=== PATIENT | female | born 1990 | race American Indian/Alaskan Native ===

== ENCOUNTER 2017-10-19 13:18 | Outpatient (CLI) | payer BC, MEDICAID ==
[2017-10-19 13:43] VITALS: BP 119/71
== END 2017-10-19 14:08 | disposition home or self-care (01) ==
LOC: TRG 13:18
PROVIDERS: ATTEND Obstetrics & Gynecology
DX: O47.1 False labor at or after 37 completed weeks of gestation (principal); Z3A.38 38 weeks gestation of pregnancy
CPT/HCPCS: 59025

== ENCOUNTER 2017-10-21 07:31 | Inpatient (IN) | payer BC, MEDICAID ==
[2017-10-21] MEDS ORDERED: NORMOSOL-R PH 7.4 1,000 ML IV ONE (08:35)
[2017-10-21] MEDS ORDERED: STADOL ONE (09:09)
[2017-10-21] MEDS ORDERED: STADOL IV PRN (09:22)
[2017-10-21 09:45] LABS: Hematocrit 34.5 % (30.3-42.9); Hemoglobin 10.9 gm/dl (10.1-14.3); Mean Corpuscular HGB Conc 32 % (30-34); Mean Corpuscular Volume 80 fl (79-97); Platelet Count 204 K/mm3 (140-440); Red Blood Count 4.34 M/mm3 (3.65-5.03); Red Cell Distribution Width 15.6 % (13.2-15.2)
[2017-10-21] MEDS ORDERED: NORMOSOL-R PH 7.4 1,000 ML IV SCH ×2 (10:00→12:00)
[2017-10-21 10:04] LABS: Mean Corpuscular Hemoglobin 25 pg (28-32)
[2017-10-21] MEDS ORDERED: PITOCin/NS 20 UNIT/1000ML DRIP 20,000 MILLIUNITS/1,000 ML BAG IV ONE (10:31)
--- NOTE | 2017-10-21 11:01 | History and Physical Report ---
History of Present Illness Date of examination: 10/21/17 Date of admission: 10/21/17 09:33 Chief complaint: CONTRACTIONS History of present illness: This is a 27 yo at 39 weeks came into triage c/o maikel. Patient was noted to be 4/100/0 station and commenced to srom clear fluid. patient is well known transfer patietn from another practice at 26 weeks. H/o HSV no outbreak nor lesions seen. 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 History: D&C, other (LEEP) HERB DOCTOR History: herpes Family/Genetic History: none Social history: single. denies: smoking, alcohol abuse, prescription drug abuse - Obstetrical History Expected Date of Delivery: 10/28/17 Actual Gestation: 39 Week(s) 0 Day(s) : 2 Para: 0 Hx # Term Pregnancies: 0 Number of Pregnancies: 0 Spontaneous Abortions: 1 Induced : 0 Number of Living Children: 0 Medications and Allergies Allergies Allergy/AdvReac Type Severity Reaction Status Date / Time No Known Allergies Allergy Unverified 10/19/17 13:53 Home Medications Medication Instructions Recorded Confirmed Last Taken Type Ferrous Sulfate [Feosol] 325 mg PO QDAY 10/19/17 10/21/17 10/20/17 08:00 History 1 valACYclovir [Valtrex] 1 tab PO BID 10/19/17 10/21/17 10/20/17 08:00 History Active Meds: Active Medications Butorphanol Tartrate (Stadol) 2 mg IV Q2H PRN PRN Reason: Labor Pain Last Admin: 10/21/17 09:10 Dose: 2 mg Parenteral Electrolytes (Normosol-R Ph 7.4) 1,000 mls @ 125 mls/hr IV DIRECT JUVE Review of Systems All systems: negative Genitourinary: contractions - Vital Signs Vital signs: Vital Signs Temp Resp 98.5 F 18 10/21/17 07:53 10/21/17 07:53 Temp Pulse Resp BP Pulse Ox 98.5 F 89 18 110/53 99 10/21/17 07:53 10/21/17 10:51 10/21/17 07:53 10/21/17 10:51 10/21/17 10:25 - Physical Exam Breasts: Positive: normal Cardiovascular: Regular rate, Normal S1 Lungs: Positive: Clear to auscultation, Normal air movement Abdomen: Positive: soft, normal bowel sounds. Negative: distention, tenderness , guarding Genitourinary (Female): Positive: normal external genitalia, normal perenium Vulva: both: normal Vagina: Positive: normal moisture Uterus: Positive: normal size Adnexa: both: normal Anus/Rectum: Positive: normal perianal skin Extremities: Positive: normal Deep Tendon Reflex Grade: Normal +2 - Obstetrical FHR: category 1 Cervical Dilatation: 6 Cervical Effacement Percentage: 100 station: 0 Uterine Contraction Pattern: Regular Uterine Tone Measurement Phase: Contraction Uterine Contraction Intensity: Moderate Results Result Diagrams: 10/21/17 09:20 Abnormal lab results 10/21/17 Range/Units 09:20 WBC 18.8 H (4.5-11.0) K/mm3 MCH 25 L (28-32) pg RDW 15.6 H (13.2-15.2) % All other labs normal. Assessment and Plan A/P IUP 39 weeks active labor srom GBS neg expect vaginal delviery IVF, labs
[2017-10-21] MEDS ORDERED: XYLOCAINE 2% INFILTRATI ONE (11:04)
[2017-10-21] MEDS ORDERED: MINERAL OIL PO PRN (11:04)
[2017-10-21] MEDS ORDERED: NORCO 5/325 PO PRN (11:04)
[2017-10-21] MEDS ORDERED: ePHEDrine SULFATE IV PRN (11:04)
[2017-10-21] MEDS ORDERED: BRETHINE IVP PRN (11:04)
[2017-10-21] MEDS ORDERED: PERCOCET 5/325 PO PRN (11:04)
[2017-10-21] MEDS ORDERED: TORADOL IV PRN (11:04)
[2017-10-21] MEDS ORDERED: MILK OF MAGNESIA PO PRN (11:04)
[2017-10-21] MEDS ORDERED: TYLENOL PO PRN (11:04)
[2017-10-21] MEDS ORDERED: BRETHINE SUB-Q PRN (11:04)
[2017-10-21] MEDS ORDERED: BENADRYL PO PRN (11:04)
[2017-10-21] MEDS ORDERED: PHENERGAN PO PRN (11:04)
[2017-10-21] MEDS ORDERED: ZOFRAN IV PRN (11:04)
[2017-10-21] MEDS ORDERED: LANSINOH TP PRN (11:04)
[2017-10-21] MEDS ORDERED: TUCKS PAD TP PRN (11:04)
[2017-10-21] MEDS ORDERED: PHENERGAN PR PRN (11:04)
[2017-10-21] MEDS ORDERED: DULCOLAX PR PRN (11:04)
--- NOTE | 2017-10-21 11:15 | Procedure Note ---
OB Delivery Note - Delivery Date of Delivery: 10/21/17 Surgeon: MARIANO DOMINGUEZ Estimated blood loss: 200cc - Vaginal Delivery presentation: vertex Delivery position: OA Intrapartum events: precipitous labor- <3hr Delivery induction: none Delivery monitor: external FHT, external uterine Route of delivery: Delivery placenta: spontaneous Delivery cord: nuchal cord, 3 umbilical vessels Episiotomy: none Delivery laceration: none Anesthesia: none Delivery comments: Patient was noted to be c/c/0 and commenced to pushing a viable female after reduction of loose nuchal cord. Shoulders were delivered easily. Baby born at 1030 . Baby placed on mom abdomen with suction of nasopharynx and oropharynx. Cord was clamped and cut. The placenta delivered at 1032 intact with 3 vessel cord. Patient perineum reviewed without any lacerations Baby apgars 8 and 9 weighing 6 pounds 5 oz. Patient tolerated procedure well. Laps correct x2.
[2017-10-21] MEDS ORDERED: SODIUM CHLORIDE FLUSH SYRINGE 10 ML IV NR (12:00)
[2017-10-21] MEDS ORDERED: PITOCin/NS 30 UNIT/500ML 30 UNITS/500 ML BAG IV SCH (12:00)
[2017-10-21] MEDS ORDERED: SENOKOT S PO SCH (12:00)
[2017-10-21] MEDS ORDERED: PITOCin/NS 20 UNIT/1000ML DRIP 20 UNITS/1,000 ML BAG IV SCH ×2 (12:00)
[2017-10-21] MEDS: MOTRIN PO SCH ×3 (12:39→23:52)
[2017-10-21] MEDS: COLACE PO SCH (22:25)
[2017-10-21 23:13] LABS: Hematocrit 29.2 % (30.3-42.9); Hemoglobin 9.2 gm/dl (10.1-14.3)
[2017-10-22] MEDS: MOTRIN PO SCH ×2 (06:05→12:34)
--- NOTE | 2017-10-22 08:42 | Progress Note ---
Assessment and Plan - Patient Problems (1) Vaginal delivery Current Visit: Yes Status: Acute Plan to address problem: Patient doing well Discharge home Subjective - Subjective Date of service: 10/22/17 Interval history: The patient is without complaints. She reports only minor uterine cramping. Her lochia is decreased. Patient reports: appetite normal, voiding normally, pain well controlled Objective - Vital Signs Latest vital signs: Vital Signs Temp Pulse Resp BP BP Pulse Ox 10/22/17 01:45 98.6 F 70 20 90/55 97 10/21/17 20:30 99.2 F 76 20 91/57 100 10/21/17 16:35 98.2 F 82 20 91/56 10/21/17 12:50 98.7 F 76 18 104/56 100 10/21/17 11:34 84 117/52 10/21/17 11:02 90 106/57 10/21/17 10:51 89 110/53 10/21/17 10:25 78 99 10/21/17 10:20 81 100 10/21/17 10:15 80 98 10/21/17 10:10 89 91 10/21/17 10:09 85 94 10/21/17 10:05 88 98 10/21/17 10:02 82 103/58 10/21/17 10:00 95 H 99 10/21/17 09:57 97 H 93 10/21/17 09:55 89 92 10/21/17 09:51 89 93 10/21/17 09:50 94 H 99 10/21/17 09:45 88 94 10/21/17 09:44 88 92 10/21/17 09:40 94 H 100 10/21/17 09:35 90 99 10/21/17 09:34 93 H 91 10/21/17 09:30 91 H 98 10/21/17 09:27 85 88 10/21/17 09:25 93 H 96 10/21/17 09:20 94 H 98 Intake and Output 10/21/17 10/22/17 10/22/17 22:59 06:59 14:59 Intake Total 600 240 Output Total 1200 Balance -600 240 Intake: Oral 600 240 Output: Urine 1200 Void 1200 Other: Total, Intake Amount 240 120 Total, Output Amount 600 # Voids Void 1 1 - Exam Uterus: Present: normal, firm - Labs Labs: Abnormal lab results 10/21/17 10/21/17 Range/Units 09:20 22:43 WBC 18.8 H (4.5-11.0) K/mm3 Hgb 9.2 L (10.1-14.3) gm/dl Hct 29.2 L (30.3-42.9) % MCH 25 L (28-32) pg RDW 15.6 H (13.2-15.2) %
--- NOTE | 2017-10-22 08:44 | Discharge Summary ---
Providers - Providers Date of Admission: 10/21/17 09:33 Date of discharge: 10/22/17 Attending physician: MARIANO DOMINGUEZ MD Primary care physician: MADELYN WATERS Hospitalization Reason for admission: IUP at term Delivery: Discharge diagnosis: IUP at term delivered [place] baby: female Hospital course: Patient was admitted to labor and delivery. She had a spontaneous normal vaginal delivery. course was uneventful. Condition at discharge: Good Disposition: DC-01 TO HOME OR SELFCARE - Discharge Diagnoses (1) Vaginal delivery Status: Acute Plan - Discharge Medications Prescriptions: HYDROcodone/APAP 5-325 [[place] 5/325] 1 each PO Q6HR PRN #30 tablet PRN Reason: Pain Ibuprofen [Motrin] 800 mg PO Q8HR PRN #60 tablet PRN Reason: Pain - Provider Discharge Summary Activity: no sex for 6 weeks, no heavy lifting 4 weeks, no strenuous exercise Diet: routine Instructions: routine Additional instructions: [] Smoking cessation referral if applicable(refer to patient education folder for contact #) [] Refer to [facility]'s [facility] Booklet Call your doctor immediately for: * Fever > 100.5 * Heavy vaginal bleeding ( >1 pad per hour) * Severe persistent headache * Shortness of breath * Reddened, hot, painful area to leg or breast * Scheduled visit in 4 weeks - Follow up plan
[2017-10-22] MEDS ORDERED: PRENATAL VITAMIN PO SCH (10:00)
[2017-10-22] MEDS: COLACE PO SCH (10:43)
[2017-10-22] MEDS ORDERED: M-M-R II VACCINE SUB-Q ONE (11:04)
[2017-10-22] MEDS ORDERED: BOOSTRIX IM ONE (11:04)
[2017-10-22 15:43] VITALS: BP 106/61
== END 2017-10-22 15:25 | disposition home or self-care (01) | DRG 774 ==
LOC: TRG 07:31 → LD 09:33 → OB 12:46
PROVIDERS: ADMIT Obstetrics & Gynecology; ATTEND Obstetrics & Gynecology
PROC: 10E0XZZ Delivery of Products of Conception, External Approach (ICD-10-PCS; principal; 2017-10-21)
DX: O42.02 Full-term premature rupture of membranes, onset of labor within 24 hours of rupture (principal); O98.52 Other viral diseases complicating childbirth; O62.3 Precipitate labor; O69.81X0 Labor and delivery complicated by cord around neck, without compression, not applicable or unspecified; Z3A.39 39 weeks gestation of pregnancy; Z37.0 Single live birth; B00.9 Herpesviral infection, unspecified
CPT/HCPCS: 36415; 85014; 85018; 85027; 86592; 86850; 86900; 86901; 99211; G0463; J0595; J2590

== ENCOUNTER 2021-05-13 11:12 | Outpatient (CLI) | payer OTHER, MEDICAID ==
[2021-05-13 11:51] VITALS: BP 108/63
--- NOTE | 2021-05-13 17:40 | Ultrasound Report ---
ULTRASOUND OBSTETRIC LIMITED ULTRASOUND BIOPHYSICAL PROFILE INDICATION / CLINICAL INFORMATION: IUP at 38 wks, Decreased movement. COMPARISON: None available. FINDINGS: BREATHING MOVEMENT = 2 GROSS BODY MOVEMENT = 2 TONE = 2 QUALITATIVE AMNIOTIC FLUID VOLUME = 2 TOTAL BIOPHYSICAL SCORE = 8/8 AMNIOTIC FLUID INDEX (cm) = not measured. PRESENTATION: Cephalic. HEART RATE (beats per minute): 147 ADDITIONAL FINDINGS: None. IMPRESSION: 1. Biophysical Score = 8/8 Signer Name: Del Stovall MD Signed: 05/13/2021 5:36 PM Workstation Name: [employer]
== END 2021-05-13 13:44 | disposition home or self-care (01) ==
LOC: TRG 11:12 → APU 11:15 → TRG 13:44
PROVIDERS: ATTEND Obstetrics & Gynecology
DX: Z34.93 Encounter for supervision of normal pregnancy, unspecified, third trimester (principal); Z3A.38 38 weeks gestation of pregnancy
CPT/HCPCS: 59025; 76819

== ENCOUNTER 2021-05-26 01:12 | Inpatient (IN) | payer OTHER, MEDICAID ==
[2021-05-26] MEDS ORDERED: LACTATED RINGERS 1,000 ML ONE (01:14)
[2021-05-26] MEDS ORDERED: OXYTOCIN DRIP 30,000 MILLIUNITS/500 ML BAG IV ONE (01:18)
--- NOTE | 2021-05-26 01:28 | Procedure Note ---
OB Delivery Note - Delivery Date of Delivery: 05/26/21 Fraternity Adviser: YULIANA MONTEMAYOR ([facility]) Estimated blood loss: 200cc - Vaginal Delivery presentation: vertex Delivery position: OA Intrapartum events: none Delivery induction: none Delivery monitor: external FHT, external uterine Route of delivery: Delivery placenta: spontaneous Delivery cord: 3 umbilical vessels Episiotomy: none Delivery laceration: none Anesthesia: none Delivery comments: Pt cried out and baby upon entering room. Male birthed preciptously over intact perineum and placed to maternal abd. Cord clamped and cut and infant taken to warmer for assessment, 3 vessel cord. Placenta birthed intact and spontaneously, no lacerations to repair. Fundus firm and lochia normal. Counts correct, ebl 200. Apgars 8/9, 8#6. Mom and baby LDR stable. - Infant A at 1 minute: 8 (8#6) at 5 minutes: 9 Infant Gender: Male
[2021-05-26] MEDS ORDERED: IBUPROFEN 800 MG TAB ONE (01:31)
[2021-05-26] MEDS ORDERED: CARBOPROST TROMETHAMINE 250 MCG/1 ML INJ IM PRN (01:32)
[2021-05-26] MEDS ORDERED: ONDANSETRON 4 MG/2 ML INJ IV PRN (01:32)
[2021-05-26] MEDS ORDERED: ACETAMINOPHEN 325 MG TAB PO PRN (01:32)
[2021-05-26] MEDS ORDERED: METHYLERGONOVINE MALEATE 0.2 MG/ML VIAL IM PRN (01:32)
[2021-05-26] MEDS ORDERED: MINERAL OIL 30 ML ORAL LIQD PO PRN (01:32)
[2021-05-26] MEDS ORDERED: LOPERAMIDE 2 MG CAP PO PRN (01:32)
[2021-05-26] MEDS ORDERED: miSOPROStol 200 MCG TAB PR PRN (01:32)
[2021-05-26] MEDS ORDERED: TERBUTALINE 1 MG/1 ML INJ SUB-Q PRN (01:32)
[2021-05-26] MEDS ORDERED: LIDOCAINE (2%) 20 MG/1 ML VIAL 20 ML MDV INFILTRATI ONE (01:32)
[2021-05-26] MEDS ORDERED: OXYTOCIN 10 UNIT/1 ML INJ IM PRN (01:32)
[2021-05-26] MEDS ORDERED: ePHEDrine SULFATE 50 MG/1 ML INJ IV PRN (01:32)
[2021-05-26] MEDS ORDERED: IBUPROFEN 800 MG TAB PO PRN (01:34)
[2021-05-26] MEDS ORDERED: WITCH HAZEL/ GLYCERIN PAD TP PRN (01:38)
[2021-05-26] MEDS ORDERED: LANOLIN/ZINC/DIMETHICONE (LANSINOH) 7 GM TP PRN (01:38)
[2021-05-26] MEDS ORDERED: MAGNESIUM HYDROXIDE (MOM) ORAL LIQD UDC PO PRN (01:38)
[2021-05-26] MEDS ORDERED: diphenhydrAMINE 25 MG CAP PO PRN (01:38)
[2021-05-26] MEDS ORDERED: PROMETHAZINE 25 MG RECT SUPP PR PRN (01:38)
[2021-05-26] MEDS ORDERED: LACTATED RINGERS 1,000 ML IV SCH (01:45)
[2021-05-26 01:52] LABS: Hematocrit 30.9 % (30.3-42.9); Hemoglobin 9.8 gm/dl (10.1-14.3); Mean Corpuscular HGB Conc 32 % (30-34); Mean Corpuscular Volume 71 fl (79-97); Platelet Count 185 K/mm3 (140-440); Red Blood Count 4.35 M/mm3 (3.65-5.03); Red Cell Distribution Width 16.5 % (13.2-15.2)
--- NOTE | 2021-05-26 01:55 | History and Physical Report ---
History of Present Illness Date of examination: 05/26/21 Date of admission: 05/26/21 01:12 Chief complaint: Active labor with precipitous delivery History of present illness: 30 yo, @ 39.6 wks, [facility]4 wks [facility]. has been complicated by anemia, HSV2 and h/o LEEP. Presents to [facility] with reports of frequent painful ctxs, found to have advanced cervical dilation and went on to precipitously deliver a viable male . Labs: O+, antibody negative, rubella immune, VDRL non-reactive, urine culture negative, HBsAg negative, HIB negative, GC/Chlamydia/Trich negative; 1 hr gtt 100; GBS negative. 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 Family/Genetic History: none Social history: - Obstetrical History Expected Date of Delivery: 05/27/21 Actual Gestation: 39 Week(s) 6 Day(s) : 4 Para: 1 Hx # Term Pregnancies: 1 Number of Pregnancies: 0 Spontaneous Abortions: 2 Induced : 0 Number of Living Children: 1 #1 Infant Gender: Female year: 2,[birth year] Birthweight: 2.863 kg Method of Delivery: Vaginal Gestational age at delivery: 39 Complications: none Medications and Allergies Allergies Allergy/AdvReac Type Severity Reaction Status Date / Time soy Allergy Mild Unknown Verified 05/13/21 11:38 peanut Allergy Unknown Verified 05/13/21 11:39 wheat Allergy Unknown Verified 05/13/21 11:39 Home Medications Medication Instructions Recorded Confirmed Last Taken Type valACYclovir [Valtrex] 1 tab PO BID 10/19/17 05/13/21 10/20/17 08:00 History Active Meds: Active Medications Acetaminophen (Acetaminophen 325 Mg Tab) 650 mg PO Q4H PRN PRN Reason: Pain, Mild (1-3) Carboprost Tromethamine (Carboprost Tromethamine 250 Mcg/1 Ml Inj) 250 mcg IM ONCE PRN PRN Reason: Uterine Bleeding Ephedrine Sulfate (Ephedrine Sulfate 50 Mg/1 Ml Inj) 10 mg IV Q2M PRN PRN Reason: Hypotension Lactated Ringer's (Lactated Ringers) 1,000 mls @ 125 mls/hr IV DIRECT JUVE Oxytocin/Sodium Chloride (Pitocin/Ns 30 Unit/500ml) 30 units in 500 mls @ 40 mls/hr IV TITR JUVE; Protocol Ibuprofen (Ibuprofen 800 Mg Tab) 800 mg PO Q8H PRN PRN Reason: Pain, Mild (1-3) Loperamide HCl (Loperamide 2 Mg Cap) 2 mg PO ONCE PRN PRN Reason: give with Hemabate Methylergonovine Maleate (Methylergonovine Maleate 0.2 Mg/Ml Vial) 0.2 mg IM ONCE PRN PRN Reason: Uterine Bleeding Mineral Oil (Mineral Oil 30 Ml Oral Liqd) 30 ml PO QHS PRN PRN Reason: Constipation Misoprostol (Misoprostol 200 Mcg Tab) 800 mcg [place] ONCE PRN PRN Reason: Uterine Bleeding Ondansetron HCl (Ondansetron 4 Mg/2 Ml Inj) 4 mg IV Q8H PRN PRN Reason: Nausea And Vomiting Oxytocin (Oxytocin 10 Unit/1 Ml Inj) 10 unit IM ONCE PRN PRN Reason: Uterine Bleeding Terbutaline Sulfate (Terbutaline 1 Mg/1 Ml Inj) 0.25 mg SUB-Q ONCE PRN PRN Reason: Hyperstimulation/Hypertonicity Review of Systems All systems: negative Genitourinary: contractions - Vital Signs Vital signs: Vital Signs Pulse Pulse Ox 91 H 94 05/26/21 01:14 05/26/21 01:14 Temp Pulse Resp BP Pulse Ox 93 H 111/61 94 05/26/21 01:40 05/26/21 01:40 05/26/21 01:37 - Physical Exam Breasts: Positive: normal Cardiovascular: Regular rate Lungs: Positive: Normal air movement Genitourinary (Female): Positive: normal external genitalia, normal perenium Vagina: Positive: normal moisture Uterus: Positive: enlarged Extremities: Positive: edema Deep Tendon Reflex Grade: Normal +2 Results All other labs normal. Assessment and Plan - Patient Problems (1) (normal spontaneous vaginal delivery) Current Visit: Yes Status: Acute Plan to address problem: Transfer to /B Anticipate d/c in 24-48 hrs (2) HSV-2 seropositive Current Visit: Yes Status: Acute
[2021-05-26] MEDS ORDERED: OXYTOCIN DRIP 30 UNITS/500 ML BAG IV SCH (02:00)
[2021-05-26] MEDS ORDERED: IBUPROFEN 800 MG TAB PO SCH (02:00)
[2021-05-26] MEDS: oxyCODONE /ACETAMINOPHEN 5-325MG TAB PO PRN ×3 (03:12→22:10)
[2021-05-26] MEDS: PRENATAL VIT27-FE FUMARATE-FOLIC ACID VIT TAB PO SCH (08:54)
[2021-05-26 14:56] LABS: Hematocrit 26.8 % (30.3-42.9); Hemoglobin 8.4 gm/dl (10.1-14.3)
[2021-05-27] MEDS: oxyCODONE /ACETAMINOPHEN 5-325MG TAB PO PRN ×2 (05:13→11:29)
[2021-05-27] MEDS: PRENATAL VIT27-FE FUMARATE-FOLIC ACID VIT TAB PO SCH (10:39)
--- NOTE | 2021-05-27 15:18 | Progress Note ---
Assessment and Plan PPD 1 s/p . Doing well. Pt ready for discharge on today Subjective - Subjective Date of service: 05/27/21 Patient reports: appetite normal, voiding normally, pain well controlled, ambulating normally : doing well Objective - Vital Signs Latest vital signs: Vital Signs Temp Pulse Resp BP Pulse Ox Pulse Ox 05/27/21 12:21 98 05/27/21 10:20 98 05/27/21 08:25 98 05/27/21 07:46 97.9 F 80 18 103/56 96 05/27/21 06:13 18 05/27/21 05:13 18 05/27/21 01:03 98.3 F 89 20 97/60 97 05/26/21 23:10 18 05/26/21 22:10 18 05/26/21 20:37 100 05/26/21 16:57 98.0 F 91 H 18 103/62 97 Intake and Output 05/27/21 05/27/21 05/27/21 06:59 14:59 22:59 Other: # Voids Void 1 - Exam Breasts: Present: deferred Cardiovascular: Present: Regular rate, Normal S1, Normal S2 Lungs: Present: Clear to auscultation Abdomen: Present: normal appearance, soft, normal bowel sounds Uterus: Present: normal, firm Extremities: Present: normal - Labs Labs: Abnormal lab results 05/26/21 Range/Units 13:22 Hgb 8.4 L (10.1-14.3) gm/dl Hct 26.8 L (30.3-42.9) %
--- NOTE | 2021-05-27 15:19 | Discharge Summary ---
Providers - Providers Date of Admission: 05/26/21 01:12 Date of discharge: 05/27/21 Attending physician: MADELYN WATERS Primary care physician: MADELYN WATERS Hospitalization Reason for admission: active labor Delivery: Episiotomy: none Laceration: none complications: none Discharge diagnosis: IUP at term delivered baby: male Hospital course: unremarkable Condition at discharge: Good Disposition: 01 HOME / SELF CARE / HOMELESS Plan - Discharge Medications Prescriptions: Ibuprofen [Motrin 600 MG tab] 600 mg PO Q8H PRN #40 tablet PRN Reason: Pain - Provider Discharge Summary Activity: routine, no sex for 6 weeks, no heavy lifting 4 weeks, no strenuous exercise Diet: routine Instructions: routine Additional instructions: [] Smoking cessation referral if applicable(refer to patient education folder for contact #) [] Refer to [facility] Booklet Call your doctor immediately for: * Fever > 100.5 * Heavy vaginal bleeding ( >1 pad per hour) * Severe persistent headache * Shortness of breath * Reddened, hot, painful area to leg or breast * Drainage or odor from incision. * Keep incision clean and dry at all times and follow doctor's instructions regarding bathing/showering - Follow up plan Follow up: MADELYN WATERS MD [Primary Care Provider] - 6 Weeks
[2021-05-27 16:18] VITALS: BP 103/64
== END 2021-05-27 16:45 | disposition home or self-care (01) | DRG 806 ==
LOC: LD 01:12 → OB 04:07
PROVIDERS: ADMIT Obstetrics & Gynecology; ATTEND Obstetrics & Gynecology
PROC: 10E0XZZ Delivery of Products of Conception, External Approach (ICD-10-PCS; principal; 2021-05-26)
DX: O62.3 Precipitate labor (principal); O98.32 Other infections with a predominantly sexual mode of transmission complicating childbirth; Z37.0 Single live birth; Z20.822 Contact with and (suspected) exposure to COVID-19; Z3A.39 39 weeks gestation of pregnancy; Z91.010 Allergy to peanuts; Z91.018 Allergy to other foods; A60.00 Herpesviral infection of urogenital system, unspecified
CPT/HCPCS: 36415; 85014; 85018; 85027; 86850; 86900; 86901; 99211; G0378; G0463; J2590; J7120; U0003